=== PATIENT | female | born 1960 | race Hispanic/Latino ===

== ENCOUNTER 2016-10-22 10:50 | Outpatient (CLI) | payer OTHER ==
--- NOTE | 2016-10-22 14:24 | Ultrasound Report ---
ULTRASOUND SOFT TISSUE HEAD AND NECK HISTORY: Right neck mass. FINDINGS: Grayscale ultrasound with color Doppler interrogation was performed at a palpable lesion in the right side of the neck. The images demonstrate a 1.2 x 0.9 x 1.1 cm hypoechoic masslike lesion with trace internal flow on color Doppler. This appears to represent a mildly enlarged lymph node. The normal architecture of a lymph node is not seen. This may represent a reactive lymph node. Close interval followup and possible ultrasound-guided biopsy is recommended. IMPRESSION: Slightly enlarged and slightly abnormal right cervical lymph node. Close interval followup is recommended.
== END 2016-10-22 10:51 | disposition home or self-care (01) ==
LOC: US 10:50
DX: R22.1 Localized swelling, mass and lump, neck (principal)
CPT/HCPCS: 76536